=== PATIENT | male | born 1965 | race Caucasian/White ===

== ENCOUNTER → 2017-05-13 07:59 | Outpatient (CLI) | payer OTHER, SELFPAY ==
[2017-05-13 09:16] LABS: Anion Gap 13.1 mEq/L (5-15); Blood Urea Nitrogen 20 mg/dL (7-18); Carbon Dioxide 29 mmol/L (21.0-32.0); Chloride 102 mmol/L (98-107); Creatinine,Serum 1.08 mg/dL (0.70-1.30); Estimated Glomerular Filt Rate 72 ml/min (>60); GFR (African American) 88 ML/MIN (>60); Glucose 118 mg/dL (74-106); Potassium 4.1 mmoL/L (3.5-5.1); Sodium 140 mmol/L (136-145)
[2017-05-13 09:56] LABS: Basophils # 0.1 K/mm3 (0-0.2); Basophils % 0.6 % (0.1-2.0); Eosinophils # 0.2 K/mm3 (0.0-0.4); Eosinophils % 1.9 % (0.1-12.0); Hemoglobin 14.7 g/dL (14.1-18.0); Lymphocytes # 2.6 K/mm3 (0.7-4.5); Lymphocytes % 24.3 K/mm3 (10-50); Mean Corpuscular Hemoglobin 32.3 pg (27.0-31.2); Mean Corpuscular Volume 92.5 fl (80-94); Mean Platelet Volume 7.4 fl (7.4-10.4); Monocytes # 0.7 K/mm3 (0.1-1.0); Monocytes % 6.4 % (1.7-9.3); Neutrophils # 7.1 K/mm3 (1.8-7.8); Neutrophils % 66.8 % (37.0-80.0); Platelet Count 249 K/mm3 (142-424); Red Blood Count 4.54 M/mm3 (4.60-6.20); Red Cell Distribution Width 12.3 % (11.5-17.5); White Blood Count 10.7 K/mm3 (4.8-10.8)
== END ==
PROVIDERS: PCP Family Medicine; Visit Provider Surgery
DX: K42.9 Umbilical hernia without obstruction or gangrene (principal)
CPT/HCPCS: 36415; 80048; 85025; 93005

== ENCOUNTER 2017-06-11 06:04 | Day surgery (SDC) | payer OTHER, SELFPAY ==
[2017-06-10 10:45] VITALS: BMI 31.8
[2017-06-11] VITALS (7 sets, daily range): BP systolic 102–133; BP diastolic 53–70; PULSE 60–74; RESP 16–18; TEMP 36.4–36.7; O2SAT 91–96
--- NOTE | 2017-06-11 07:12 | P.PN_ITS ---
[facility] Anesthesia Checklist - Patient Identification Patient Identification: Arm Band, Verbal (Name & ) - Structural Data Admitted From: Home Planned Operative Procedure/s: ventral hernia Consent for Planned Operative Procedure(s) Verified: Yes Verified Documents: Surgical Consent - NPO Status Verified Time NPO: 00:00 - Chart Verification Results Verified: BMP - Additional verifications Patient : No Anesthesia Reactions: No Hx Blood Transfusions: No Blood Transfusion Reaction: No Cephalosporin Allergy: No Previous Colonoscopy: No - Cardiovascular Assessment Heart Sounds: S1 & S2 Pulse Strength: Baseline Pulse Rhythm: Regular Peripheral Edema: No - Airway Assessment C-Spine Mobility Assessed: Yes TMJ Mobility Assessed: Yes Dentition: Good Dentition - Neurological Assessment Level of Consciousness: Awake, Alert, Appropriate Hx Seizures: No Numbness or tingling in extremities: No - Anesthesia Plan Anesthesia Risk discussed: Yes Anesthesia Plan: Verified ASA Class: II Anesthesia Type: MAC [facility] Anesthesia HX I have reviewed the patient's past medical history: Yes Medical History: Reports:: Hypertension Denies:: Cancer, Diabetes Mellitus Type 1, Diabetes Mellitus Type 2, MRSA, Seizures Other Medical History: Reports: Other. Denies: Blood Transfusion Reaction Laterality Cases: Bilateral: Tonsillectomy Other Surgeries: Yes: Colonoscopy, Other Amputation: No Fractures: Yes *Family Hx:: Diabetes, Hypertension
--- NOTE | 2017-06-11 08:12 | HMH.OPNOTE ---
Date of procedure: 06/11/17 Pre-op Diagnosis:: Umbilical hernia Post-op Diagnosis:: Same Procedure performed:: Open umbilical hernia repair with placement of medium sized Bard ventral ex mesh Surgeon:: Abdiel Thomson MD PLATEMAKER:: Akshat Jimenez Anesthesia: CAMILA Estimated blood loss (mL): 20 Clinical Note:: Patient is a 51-year-old white male whom I had seen as a consultation for umbilical hernia. He had an episode of some significant pain. Interestingly he is had some referred pain from the umbilical area to the lower genital area occasionally. He was seen as a surgical consultation was found to have approximately a 15 mm hernia defect at the umbilicus. Plan was made for open repair with mesh placement Operative findings:: He had a 15-20 mm defect with hernia sac containing herniated omentum. Small bowel was closely underlying the herniated fat. Operative note:: Consent was obtained and patient was taken to the operating room. He was positioned in a supine position and general anesthesia was induced. Abdomen was prepped and draped in the standard surgical fashion. Subumbilical skin incision was made. Dissection was carried down to the underlying peritoneum of the hernia sac which was adherent to the umbilical sub-dermis. This was carefully dissected free down to the fascia. The hernia sac was incised. There was some herniated omentum. This is able to be reduced. The extraneous hernia sac was excised using electrocautery down to the fascia. There was some thickened tissue inferiorly which was excised and ligated as well possibly as obliterated urachus. Fascial defect measured up to 2 cm. Plan was made for repair with Bard ventral ex mesh. Medium sized ventral ex mesh was brought onto the field and rolled and inserted into the peritoneal cavity. He was oriented posterior to the fascial defect to allow for good overlap and coverage. Details of the mesh were secured to the fascia with interrupted 2-0 Prolene sutures. Tails were then cut flush with the fascia and fascia was closed over the mesh with a couple of interrupted 0 Ethibond sutures. Umbilical some dermis was then reapproximated underlying fascia with a single 2-0 Vicryl suture. Local anesthetic was infiltrated. There is good hemostasis. Subdermal tissues were reapproximated with interrupted 2-0 Vicryl. Skin was closed with 4-0 Monocryl in a running subcuticular fashion. Clean dry sterile dressings were applied. Condition: stable Disposition: PACU Complications:: None
--- NOTE | 2017-06-11 08:18 | P.OP_ITS ---
Date of procedure: 06/11/17 Pre-op Diagnosis:: Umbilical hernia Post-op Diagnosis:: Same Procedure performed:: Open umbilical hernia repair with placement of medium sized Bard ventral ex mesh Surgeon:: Abdiel Thomson MD APPLICATION DEVELOPER MANAGER:: Akshat Jimenez Anesthesia: CAMILA Estimated blood loss (mL): 20 Clinical Note:: Patient is a 51-year-old white male whom I had seen as a consultation for umbilical hernia. He had an episode of some significant pain. Interestingly he is had some referred pain from the umbilical area to the lower genital area occasionally. He was seen as a surgical consultation was found to have approximately a 15 mm hernia defect at the umbilicus. Plan was made for open repair with mesh placement Operative findings:: He had a 15-20 mm defect with hernia sac containing herniated omentum. Small bowel was closely underlying the herniated fat. Operative note:: Consent was obtained and patient was taken to the operating room. He was positioned in a supine position and general anesthesia was induced. Abdomen was prepped and draped in the standard surgical fashion. Subumbilical skin incision was made. Dissection was carried down to the underlying peritoneum of the hernia sac which was adherent to the umbilical sub-dermis. This was carefully dissected free down to the fascia. The hernia sac was incised. There was some herniated omentum. This is able to be reduced. The extraneous hernia sac was excised using electrocautery down to the fascia. There was some thickened tissue inferiorly which was excised and ligated as well possibly as obliterated urachus. Fascial defect measured up to 2 cm. Plan was made for repair with Bard ventral ex mesh. Medium sized ventral ex mesh was brought onto the field and rolled and inserted into the peritoneal cavity. He was oriented posterior to the fascial defect to allow for good overlap and coverage. Details of the mesh were secured to the fascia with interrupted 2-0 Prolene sutures. Tails were then cut flush with the fascia and fascia was closed over the mesh with a couple of interrupted 0 Ethibond sutures. Umbilical some dermis was then reapproximated underlying fascia with a single 2- 0 Vicryl suture. Local anesthetic was infiltrated. There is good hemostasis. Subdermal tissues were reapproximated with interrupted 2-0 Vicryl. Skin was closed with 4-0 Monocryl in a running subcuticular fashion. Clean dry sterile dressings were applied. Condition: stable Disposition: PACU Complications:: None
--- NOTE | 2017-06-11 08:19 | P.PN_ITS ---
[facility] Anesthesia Record Part I Intake, IV Amount: 750 Estimated blood loss (mL): 10 Urine output (mL): 0 Blood Products used (#): none Blood Pressure: 133/60 SaO2: 91 Pulse Rate: 74 Respiratory Rate: 18 Temperature: 98.0 F Patient is:: Awake, Stable
--- NOTE | 2017-06-11 08:20 | P.PN_ITS ---
[facility] Anesthesia Record Part II Discharge Time: 08:49 Destination: Surgical Day Care (OP Surgery) PACU nurse assessment reviewed?: Yes Patient Condition:: Good Anesthesia Complications:: None
--- NOTE | 2017-06-11 09:01 | PC.NURSE ---
[id number]-detailed report given to QUAN Mcallister 0849-Pt transported to post op via stretcher and left in care of QUAN Mcallister. VSS, pt stable.
== END 2017-06-11 09:36 | disposition home or self-care (01) ==
LOC: OR 06:11
PROVIDERS: PCP Family Medicine; Visit Provider Surgery
PROC: (CPT 49585; principal; 2017-06-11 07:30)
DX: K42.9 Umbilical hernia without obstruction or gangrene (principal)
CPT/HCPCS: 49585; 96374; C1781; J0131; J2405; J2710

== ENCOUNTER 2020-08-16 14:30 | Outpatient (RCR) | payer OTHER, SELFPAY ==
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
== END 2020-08-16 14:35 | disposition home or self-care (01) ==
LOC: PT 14:30
PROVIDERS: PCP Family Medicine; Visit Provider Family Medicine
DX: M54.6 Pain in thoracic spine (principal)
CPT/HCPCS: 20560; 97010; 97014; 97110; 97140; 97163; G0283

== ENCOUNTER → 2020-11-29 13:00 | Outpatient (CLI) | payer OTHER, SELFPAY ==
[2020-11-29] VITALS (8 sets, daily range): BP systolic 116–136; BP diastolic 58–80; PULSE 62–70; RESP 16–18; TEMP 36.7–37; O2SAT 96–97
== END ==
PROVIDERS: PCP Family Medicine; Visit Provider Family Medicine
DX: U07.1 COVID-19 (principal)
CPT/HCPCS: 96365

== ENCOUNTER → 2020-12-05 08:41 | Outpatient (CLI) | payer OTHER, SELFPAY ==
--- NOTE | 2020-12-05 08:46 | XR_ITS ---
PROCEDURE: XR CHEST 2V CLINICAL HISTORY: COUGH,TIGHTNESS IN CHEST COMPARISON: No exams were available for comparison FINDINGS: The cardiomediastinal silhouette and pulmonary vascularity are within normal limits. There are faint areas of peripheral increased density in the left upper and left mid lung zone laterally and could be due to areas of faint infiltrate and/or atelectatic change. Follow-up suggested to confirm stability. No acute bony abnormalities. IMPRESSION: Faint areas of increased density in the left upper lobe peripherally which may be due to faint areas of infiltrate and/or atelectatic changes Dictated by: Ronny Marshall MD 12/05/2020 11:33 Ronny Marshall MD in [place] 12/05/2020 11:33
== END ==
PROVIDERS: PCP Family Medicine; Visit Provider Family Medicine
DX: R07.89 Other chest pain (principal); R05 Cough
CPT/HCPCS: 71046

== ENCOUNTER → 2021-01-30 12:31 | Outpatient (CLI) | payer OTHER, SELFPAY ==
[2021-01-30 14:54] LABS: Barbiturates Screen,Urine Negative ng/ml (<200)
[2021-01-30 14:55] LABS: Amphetamine/Metha Screen,Urine Negative ng/ml (<1000); Benzodiazepines Screen,Urine Positive ng/ml (<200)
[2021-01-30 14:56] LABS: Methadone Screen,Urine Negative ng/ml (<300)
[2021-01-30 14:57] LABS: Cannabinoid Screen,Urine Positive ng/ml (<50); Cocaine Screen,Urine Negative ng/ml (<300)
[2021-01-30 14:58] LABS: Opiate Screen,Urine Positive ng/ml (<300); Phencyclidine Screen,Urine Negative ng/ml (<25)
== END ==
PROVIDERS: Visit Provider Family Medicine
DX: M48.062 Spinal stenosis, lumbar region with neurogenic claudication (principal)
CPT/HCPCS: 80305

== ENCOUNTER → 2021-04-12 13:04 | Outpatient (CLI) | payer BC, SELFPAY ==
--- NOTE | 2021-04-12 13:07 | MR_ITS ---
FINAL REPORT CLINICAL HISTORY: SPINAL STENOSIS OF LUMBAR REGION. hx back surgery in 88. rt hip pain. FINDINGS: Multiplanar MR imaging of the lumbar spine was performed without contrast. On the sagittal T2-weighted images, disc degeneration is seen at multiple levels. There are endplate changes at several levels. Several small Schmorl's nodes are identified. The vertebral alignment is normal. There is no evidence of fracture. The conus has an unremarkable appearance. T12-L1: An annular bulge is present. There is no significant canal stenosis or neural foraminal narrowing. L1-2: An annular bulge and facet arthropathy are present. There is a small left paracentral annular tear and disc protrusion. L2-3: An annular bulge and facet arthropathy are present. There is a right foraminal disc protrusion resulting in right L3 nerve root impingement. There is moderate right and mild left neural foraminal narrowing. There is mild central canal stenosis with an AP diameter of the thecal sac of 9 mm. L3-4: An annular bulge is present. Facet arthropathy and osteophytes are present. There is moderate bilateral neural foraminal narrowing and bilateral lateral recess stenosis. There is moderate central canal stenosis with an AP diameter of the thecal sac of 6 mm. L4-5: An annular bulge and facet arthropathy are present. There is a small central disc protrusion with moderate bilateral neural foraminal narrowing. L5-S1: An annular bulge and facet arthropathy are present. There is mild right and moderate left neural foraminal narrowing. IMPRESSION: Right foraminal disc protrusion at L2-3 results in right L3 nerve root impingement and mild central canal stenosis. Multilevel degenerative disc disease, spondylosis, and disc protrusions as detailed above. Reviewed, Interpreted and Dictated by Abdiel Ochoa III, MD Transcribed by Kayley Foster Authenticated by Abdiel Ochoa III, MD on 04/12/2021 02:47:57 PM [facility]
== END ==
LOC: RAD 13:05
PROVIDERS: PCP Family Medicine; Visit Provider Family Medicine
DX: M48.062 Spinal stenosis, lumbar region with neurogenic claudication (principal)
CPT/HCPCS: 72148; 76376

== ENCOUNTER 2021-10-03 14:00 | Outpatient (RCR) | payer BC, OTHER, SELFPAY | END 2021-10-03 14:05 | disposition home or self-care (01) | LOC: PT 14:00 | PROVIDERS: PCP Family Medicine; Visit Provider Orthopaedic Surgery | DX: M16.11 Unilateral primary osteoarthritis, right hip (principal); Z96.641 Presence of right artificial hip joint | CPT/HCPCS: 97110; 97140; 97163; 97164 ==

== ENCOUNTER → 2022-01-13 15:14 | Outpatient (CLI) | payer OTHER, SELFPAY ==
[2022-01-13 15:43] LABS: Basophils # 0.1 K/mm3 (0-0.2); Basophils % 1.3 % (0.1-2.0); Eosinophils # 0.1 K/mm3 (0.0-0.4); Eosinophils % 1.9 % (0.1-12.0); Hematocrit 41.8 % (42.0-52.0); Hemoglobin 14.4 g/dL (14.1-18.0); Lymphocytes # 2.2 K/mm3 (0.7-4.5); Lymphocytes % 30.9 % (10-50); Mean Corpuscular HGB Conc 34.4 g/dL (31.8-35.4); Mean Corpuscular Hemoglobin 33.5 pg (27.0-31.2); Mean Corpuscular Volume 97.4 fl (80-94); Mean Platelet Volume 8.1 fl (7.4-10.4); Monocytes # 0.5 K/mm3 (0.1-1.0); Monocytes % 6.8 % (1.7-9.3); Neutrophils # 4.2 K/mm3 (1.8-7.8); Platelet Count 228 K/mm3 (142-424); Red Blood Count 4.29 M/mm3 (4.60-6.20); Red Cell Distribution Width 13.1 % (11.5-17.5); White Blood Count 7.1 K/mm3 (4.8-10.8)
== END ==
PROVIDERS: PCP Family Medicine; Visit Provider Family Medicine
DX: U07.1 COVID-19 (principal)
CPT/HCPCS: 36415; 85025; C9803; U0003; U0005

== ENCOUNTER → 2022-08-11 07:46 | Outpatient (CLI) | payer OTHER, SELFPAY ==
--- NOTE | 2022-08-11 07:51 | US_ITS ---
FINAL REPORT CLINICAL HISTORY: ELEVATED LFT FINDINGS: Ultrasound images of the right upper quadrant were obtained. The pancreas is partially obscured. The liver parenchyma is increased echogenicity. The gallbladder is well visualized and the wall appears normal. There are no gallstones. The common duct is normal. Limited images of the right kidney are unremarkable. IMPRESSION: Fatty liver. Reviewed, Interpreted and Dictated by Abdiel Ochoa III, MD Transcribed by Shaun Holcomb Authenticated and [facility]
== END ==
LOC: RAD 07:46
PROVIDERS: PCP Family Medicine; Visit Provider Family Medicine
DX: R79.89 Other specified abnormal findings of blood chemistry (principal); R94.5 Abnormal results of liver function studies
CPT/HCPCS: 76705

== ENCOUNTER 2022-11-14 17:27 | Emergency (ER) | payer OTHER, SELFPAY ==
[2022-11-14 17:28] VITALS: BP 106/71; PULSE 85; RESP 18; TEMP 36.5; O2SAT 98; BMI 30.8
--- NOTE | 2022-11-14 17:41 | PC.NURSE ---
pt left arm placed in soap and water for cleaning. Pt tolerating well
[2022-11-14 18:01] VITALS: BP 106/71; PULSE 87; O2SAT 95
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
--- NOTE | 2022-11-14 18:29 | XR_ITS ---
PROCEDURE INFORMATION: Exam: XR Left Forearm Exam date and time: 11/14/2022 6:30 PM Age: 56 years old Clinical indication: Other: Crushing; Additional info: Crush injusry proximal forearm TECHNIQUE: Imaging protocol: Radiologic exam of the left forearm. Views: 2 views. COMPARISON: No relevant prior studies available. FINDINGS: Bones/joints: There is no evidence of acute fracture or dislocation. Joint spaces appear preserved. Mild spurring involves the olecranon. Soft tissues: There is a small area of cortical contour irregularity and lucency involving the dorsal aspect of the soft tissues of the mid forearm which may reflect the tissue injury/laceration. No radiopaque foreign bodies. No joint effusion. IMPRESSION: 1. No acute posttraumatic osseous injury. 2. Small area of cortical contour irregularity and lucency involving the dorsal aspect of the soft tissues of the mid forearm which may reflect the tissue injury/laceration
[2022-11-14 18:30] VITALS: BP 121/89; PULSE 85; O2SAT 97
--- NOTE | 2022-11-14 19:05 | PC.NURSE ---
pt sitting on bed, wrapped wound on arm so pt can ambulate without it bleeding. Pt denies any needs at this time
[2022-11-14 20:16] VITALS: BP 134/86; PULSE 96; RESP 17; TEMP 36.7; O2SAT 96
== END 2022-11-14 20:17 | disposition home or self-care (01) ==
PROVIDERS: Emergency Provider Emergency Medicine; PCP Family Medicine
DX: S57.82XA Crushing injury of left forearm, initial encounter (principal); S51.812A Laceration without foreign body of left forearm, initial encounter; W23.1XXA Caught, crushed, jammed, or pinched between stationary objects, initial encounter; F17.210 Nicotine dependence, cigarettes, uncomplicated; Z23 Encounter for immunization
CPT/HCPCS: 12002; 73090; 90715; 96372; 99283